=== PATIENT | male | born 1985 | race Caucasian/White ===

== ENCOUNTER 2016-11-13 21:49 | Inpatient (IN) | payer SELFPAY ==
[~2016-11-13] VITALS: Ht 182.9 cm; Wt 76.9 kg
[2016-11-13 21:56] VITALS: BP 144/87; PULSE 124; RESP 18; TEMP 99.5; O2SAT 99
--- NOTE | 2016-11-13 22:29 | PD ---
HPI Chief Complaint: Anxiety Time Seen by Provider: 22:05 Travel History International Travel<30 days: No Contact w/Intl Traveler<30days: No Traveled to known affect area: No History of Present Illness HPI Patient is a 31 year old male who comes in complaining of feeling anxious and worried that he will have a seizure. He says that he drinks a bottle and a half of vodka daily and he wants to quit, but is afraid he will have "DTs." He says that he last drank 4 hours ago. He reports feeling shaky and says he is not thinking clearly. He denies any pain. He says he had a seizure in the past. He denies any abdominal pain, nausea or vomiting. FORMERLY [facility] Past Medical History Medical History: Denies Significant Hx ?: Not Past Surgical History Surgical History: No Previous Surgery Social History Alcohol Use: Yes (daily) Tobacco Use: Yes Allergies-Medications (Allergen,Severity, Reaction): Coded Allergies: No Known Allergies (Unverified , 11/13/16) Review of Systems Except as stated in HPI: all other systems reviewed are Neg General / Constitutional: No: Fever, Chills Eyes: No: Blurred Vision HENT: No: Headaches, Lightheadedness Cardiovascular: No: Chest Pain or Discomfort Respiratory: No: Shortness of Breath Gastrointestinal: No: Nausea, Vomiting, Abdominal Pain Genitourinary: No: Dysuria Musculoskeletal: No: Myalgias, Edema, Pain Skin: No Rash, No Change in Pigmentation Neurologic: No: Weakness, Dizziness Physical Exam Narrative GENERAL: Awake and alert, in no acute distress. No tremor evident. SKIN: Focused skin assessment warm/dry. HEAD: Atraumatic. Normocephalic. EYES: Pupils equal and round. No scleral icterus. Extraocular movements intact. ENT: Mucous membranes pink and moist. No tongue fasciculations. NECK: Trachea midline. No JVD. CARDIOVASCULAR: Tachycardia. No murmur appreciated. RESPIRATORY: No accessory muscle use. Clear to auscultation. Breath sounds equal bilaterally. GASTROINTESTINAL: Abdomen soft, non-tender, nondistended. MUSCULOSKELETAL: No obvious deformities. No clubbing. No cyanosis. No edema. NEUROLOGICAL: Awake and alert. No obvious cranial nerve deficits. Motor grossly within normal limits. Normal speech. PSYCHIATRIC: Appropriate mood and affect; insight and judgment normal. Data Data Last Documented VS Vital Signs Date Time Temp Pulse Resp B/P (MAP) Pulse Ox O2 Delivery O2 Flow Rate FiO2 11/13/16 21:56 99.5 124 18 144/87 (106) 99 Orders Orders Iv Access Insert/Monitor (11/13/16 22:21) Complete Blood Count With Diff (11/13/16 22:21) Comprehensive Metabolic Panel (11/13/16 22:21) Drug Screen, Random Urine (11/13/16 22:21) Alcohol (Ethanol) (11/13/16 22:21) Sodium Chlor 0.9% 1000 Ml Inj (Ns 1000 M (11/13/16 22:30) Lorazepam Inj (Ativan Inj) (11/13/16 22:30) Pantoprazole Inj (Protonix Inj) (11/13/16 23:00) Pantoprazole Inj (Protonix Inj) (11/13/16 23:00) Type And Screen (11/13/16 22:54) Red Blood Cells (Rbc) (11/13/16 22:54) Blood Product Administration (11/13/16 22:54) Sodium Chlor 0.9% 250 Ml Inj (Ns 250 Ml (11/13/16 23:00) Peg (High)/E-Lyte Liq (Colyte Liq) (11/13/16 23:30) Diet Npo Except Meds (11/14/16 Breakfast) Admit Order (Ed Use Only) (11/13/16 ) Labs Laboratory Tests Test 11/13/16 22:30 White Blood Count 4.9 TH/MM3 Red Blood Count 1.88 MIL/MM3 Hemoglobin 6.2 GM/DL Hematocrit 18.9 % Mean Corpuscular Volume 100.5 FL Mean Corpuscular Hemoglobin 32.8 PG Mean Corpuscular Hemoglobin Concent 32.6 % Red Cell Distribution Width 15.1 % Platelet Count 177 TH/MM3 Mean Platelet Volume 7.9 FL Neutrophils (%) (Auto) 54.3 % Lymphocytes (%) (Auto) 38.1 % Monocytes (%) (Auto) 7.0 % Eosinophils (%) (Auto) 0.2 % Basophils (%) (Auto) 0.4 % Neutrophils # (Auto) 2.7 TH/MM3 Lymphocytes # (Auto) 1.9 TH/MM3 Monocytes # (Auto) 0.3 TH/MM3 Eosinophils # (Auto) 0.0 TH/MM3 Basophils # (Auto) 0.0 TH/MM3 CBC Comment DIFF FINAL Differential Comment Blood Urea Nitrogen 9 MG/DL Creatinine 0.73 MG/DL Random Glucose 109 MG/DL Total Protein 6.5 GM/DL Albumin 3.6 GM/DL Calcium Level 8.1 MG/DL Alkaline Phosphatase 99 U/L Aspartate Amino Transf (AST/SGOT) 223 U/L Alanine Aminotransferase (ALT/SGPT) 110 U/L Total Bilirubin 0.3 MG/DL Sodium Level 138 MEQ/L Potassium Level 3.3 MEQ/L Chloride Level 100 MEQ/L Carbon Dioxide Level 23.3 MEQ/L Anion Gap 15 MEQ/L Estimat Glomerular Filtration Rate 126 ML/MIN Ethyl Alcohol Level 262 MG/DL [facility] Medical Decision Making Medical Screen Exam Complete: Yes Emergency Medical Condition: Yes Differential Diagnosis Intoxication versus withdrawal versus dehydration Narrative Course Patient is a 31-year-old male who comes in because he is anxious about possibly withdrawing from alcohol. Exam shows tachycardia, he has bright red blood per rectum and stool that is positive for blood. He denies any vomiting or vomiting of blood. IV established, labs sent. Labs show hemoglobin of 6.2. AST and ALTs are elevated. Alcohol level is 262. Patient given IV fluids. Blood transfusion ordered. Given Protonix and started on a Protonix drip. I spoke with Dr. Dean of GI who suggests GoLYTELY and nothing by mouth after midnight. He'll perform an EGD and colonoscopy tomorrow. Patient will be admitted for further management. HemaPrompt Point of Care Internal Pos. & Neg. Controls: Passed Fecal Specimen Occult Blood: Positive Diagnosis Primary Impression: GI bleed Qualified Codes: K92.2 - Gastrointestinal hemorrhage, unspecified Additional Impressions: Alcohol abuse Anemia Qualified Codes: D64.9 - Anemia, unspecified Admitting Information Admitting Physician Requests: Admit Condition: Stable Josseline Aranda MD Nov 13, 2016 22:29
[2016-11-13] MEDS ORDERED: SODIUM CHLOR 0.9% 1000 ML INJ 1,000 ML IV ONE (22:30)
[2016-11-13] MEDS ORDERED: LORazepam 2 MG/ML VIAL IV PUSH ONE (22:30)
[2016-11-13 22:41] LABS: AUTOMATED NEUTROPHIL # 2.7 TH/MM3 (1.8-7.7); BASOPHIL % 0.4 % (0.0-2.0); EOSINOPHIL % 0.2 % (0.0-4.0); LYMPH % 38.1 % (9.0-44.0); LYMPHOCYTE # 1.9 TH/MM3 (1.0-4.8); MEAN CELL VOLUME 100.5 FL (80.0-100.0); MEAN CORPUSCULAR HEMOGLOBIN 32.8 PG (27.0-34.0); MEAN CORPUSCULAR HGB CONC 32.6 % (32.0-36.0); NEUT % 54.3 % (16.0-70.0); PLATELET COUNT 177 TH/MM3 (150-450); RED BLOOD COUNT 1.88 MIL/MM3 (4.50-5.90); RED CELL DISTRIBUTION WIDTH 15.1 % (11.6-17.2); WHITE BLOOD COUNT 4.9 TH/MM3 (4.0-11.0)
[2016-11-13 22:44] LABS: HEMO FLAGS DIFF FINAL
[2016-11-13 22:46] LABS: HEMATOCRIT 18.9 % (39.0-51.0)
[2016-11-13 22:54] LABS: CHLORIDE 100 MEQ/L (98-107); POTASSIUM 3.3 MEQ/L (3.5-5.1); SODIUM (NA) 138 MEQ/L (136-145)
[2016-11-13 22:56] VITALS: BP 130/73; PULSE 118; RESP 20; O2SAT 100
[2016-11-13 22:58] LABS: ANION GAP 15 MEQ/L (5-15); BICARBONATE 23.3 MEQ/L (21.0-32.0); BLOOD UREA NITROGEN 9 MG/DL (7-18)
[2016-11-13] MEDS ORDERED: SODIUM CHLOR 0.9% 250 ML INJ 250 ML IV ONE (23:00)
[2016-11-13] MEDS ORDERED: PANTOPRAZOLE INJ 80 MG in SODIUM CHLORIDE 0.9% INJ 35 ML IV ONE (23:00)
[2016-11-13 23:01] LABS: ALT (GPT) 110 U/L (12-78); AST (GOT) 223 U/L (15-37); GLOMERULAR FILTRATION RATE 126 ML/MIN (>89)
[2016-11-13 23:02] LABS: TOTAL BILIRUBIN ADULT 0.3 MG/DL (0.2-1.0)
[2016-11-13 23:03] LABS: ALKALINE PHOSPHATASE 99 U/L (45-117)
[2016-11-13 23:13] LABS: ALCOHOL 262 MG/DL (0-5)
[2016-11-13] MEDS ORDERED: PEG (High)/E-LYTE SOLN 4000 ML BTL PO ONE (23:30)
[2016-11-13] MEDS: PANTOPRAZOLE INJ 80 MG in SODIUM CHLORIDE 0.9% INJ 100 ML IV SCH (23:37)
[2016-11-13] MEDS ORDERED: SODIUM CHLORIDE 0.9% FLUSH 10 ML FLUSH IV FLUSH PRN (23:45)
[2016-11-13] MEDS ORDERED: LORazepam 2 MG/ML VIAL IV PUSH PRN ×3 (23:45)
[2016-11-13] MEDS ORDERED: FLUMAZENIL 0.5 MG/5 ML VIAL IV PUSH PRN (23:45)
[2016-11-13] MEDS ORDERED: POTASSIUM CHLORIDE 20 MEQ CONTROLLED RELEASE TAB PO ONE (23:45)
[2016-11-13] MEDS ORDERED: LORazepam 2 MG TAB PO PRN (23:45)
[2016-11-13] MEDS ORDERED: NALOXONE HCL 0.4 MG/ML AMP IV PUSH PRN (23:45)
[2016-11-13 23:59] VITALS: BP 133/82; PULSE 126; RESP 20; O2SAT 100
[2016-11-14] VITALS (36 sets, daily range): BP systolic 100–152; BP diastolic 55–97; PULSE 68–118; RESP 9–54; TEMP 96.5–99.2; O2SAT 92–100
[2016-11-14] MEDS: MORPHINE SULFATE 4 MG/ML INJ IV PUSH PRN ×2 (00:29→03:28)
[2016-11-14] MEDS: ONDANSETRON HCL 4 MG/2 ML VIAL IVP PRN ×4 (00:30→17:44)
[2016-11-14] MEDS: LORazepam 1 MG TAB PO PRN ×2 (01:33→20:12)
[2016-11-14] MEDS: POTASSIUM CHLOR 20 MEQ PREMIX 100 ML IV SCH ×2 (01:33→03:26)
[2016-11-14] MEDS: HYDROmorphone HCL PF 1 MG/ML VIAL IV PUSH PRN ×5 (05:02→22:11)
[2016-11-14] MEDS ORDERED: SODIUM CHLORIDE 0.9% FLUSH 10 ML FLUSH IV FLUSH SCH (09:00)
[2016-11-14] MEDS ORDERED: PEG (High)/E-LYTE SOLN 4000 ML BTL PO ONE (09:00)
[2016-11-14] MEDS: LORazepam 2 MG/ML VIAL IV PUSH PRN ×2 (09:01→12:48)
[2016-11-14] MEDS: PANTOPRAZOLE INJ 80 MG in SODIUM CHLORIDE 0.9% INJ 100 ML IV SCH (09:02)
[2016-11-14] MEDS: SODIUM CHLORIDE 0.9% FLUSH 10 ML FLUSH IV FLUSH SCH ×2 (09:02→20:13)
[2016-11-14 10:12] LABS: AUTOMATED NEUTROPHIL # 4.2 TH/MM3 (1.8-7.7); BASOPHIL % 0.5 % (0.0-2.0); EOSINOPHIL % 0.2 % (0.0-4.0); HEMATOCRIT 23.3 % (39.0-51.0); HEMO FLAGS DIFF FINAL; LYMPH % 17.6 % (9.0-44.0); MEAN CELL VOLUME 95.3 FL (80.0-100.0); MEAN CORPUSCULAR HEMOGLOBIN 30.9 PG (27.0-34.0); MEAN CORPUSCULAR HGB CONC 32.3 % (32.0-36.0); MONO % 8.3 % (0.0-8.0); NEUT % 73.4 % (16.0-70.0); PLATELET COUNT 141 TH/MM3 (150-450); RED BLOOD COUNT 2.44 MIL/MM3 (4.50-5.90); RED CELL DISTRIBUTION WIDTH 16.9 % (11.6-17.2); WHITE BLOOD COUNT 5.7 TH/MM3 (4.0-11.0)
[2016-11-14 10:20] LABS: POTASSIUM 3.5 MEQ/L (3.5-5.1)
[2016-11-14 10:24] LABS: INTERNATIONAL NORMALIZED RATIO 1.1 RATIO; PROTHROMBIN TIME - PATIENT 12.3 SEC (9.8-11.6)
[2016-11-14 10:25] LABS: BICARBONATE 25.8 MEQ/L (21.0-32.0)
[2016-11-14 10:46] LABS: CALCIUM-PROTEIN CORRECTED 8.1 MG/DL (8.5-10.1)
--- NOTE | 2016-11-14 13:08 | HHI.HP ---
[facility] Service [place] [facility] Primary Care Physician No Primary Care Physician Admission Diagnosis GI bleed, anemia, tachycardia Diagnoses: (1) Alcohol withdrawal (2) HTN (hypertension) (3) GI bleed Diagnosis: Principal (4) Alcohol abuse (5) Anemia due to acute blood loss Diagnosis: Principal Travel History International Travel<30 Days: No Contact w/Intl Traveler <30 Da: No Traveled to Known Affected Are: No History of Present Illness This is a pleasant 31-year-old male with past medical history of gastric ulcers and alcoholism with alcohol withdrawal seizure who presented to the ER yesterday with alcohol withdrawal symptoms. Patient states he's been drinking about a bottle and a half wine daily and last drink was the day prior to admission. He started to feel tremulous as he did during his previous bout of alcohol withdrawal several years ago where he suffered a seizure. Because of fear of seizure he came into the emergency department. The patient was found to be anemic with hemoglobin of 6. Guaiac was briskly positive. The patient states that he has been having at times dark tarry stools. He does endorse a history of gastric ulcers but denies history of blood transfusion. The patient also complains of some epigastric and right upper quadrant abdominal pain and that this can get severe at times. No aggravating or alleviating factors. Patient denies vomiting but does endorse nausea. The patient was transfused 2 units of packed red blood cells in the emergency department however hemoglobin has only improved to 7.5 today. Per the nurse he has had several more episodes of melena mixed with bright red blood this morning and he has also been significantly anxious and tremulous requiring Ativan and he remains mildly tachycardic. Review of Systems Constitutional: COMPLAINS OF: Weight loss (states he has lost 5 pounds in the past month), DENIES: Fever, Chills Ears, nose, mouth, throat: DENIES: Throat pain, Hoarseness Respiratory: DENIES: Cough, Shortness of breath Cardiovascular: DENIES: Chest pain, Palpitations, Syncope Gastrointestinal: COMPLAINS OF: Abdominal pain, Black stools, Diarrhea, Nausea , DENIES: Bloody stools, Constipation, Vomiting Genitourinary: DENIES: Urgency, Hematuria, Dysuria Musculoskeletal: DENIES: Back pain, Neck pain Integumentary: DENIES: Rash Hematologic/lymphatic: DENIES: Lymphadenopathy Neurologic: COMPLAINS OF: Headache (occasional headaches), DENIES: Abnormal gait Psychiatric: COMPLAINS OF: Anxiety, DENIES: Confusion, Hallucinations Past Family Social History Past Medical History Hypertension History of gastric ulcer History of alcohol withdrawal seizure Reported Medications Allergies Coded Allergies Type Severity Reaction Last Updated Verified No Known Allergies 11/14/16 No Allergies: Coded Allergies: No Known Allergies (Unverified , 11/14/16) Family History Negative for inflammatory bowel disease Social History He does smoke tobacco, wine use as per history of present illness. Physical Exam Vital Signs Vital Signs Date Time Temp Pulse Resp B/P (MAP) Pulse Ox O2 Delivery O2 Flow Rate FiO2 11/14/16 12:53 96.8 104 15 146/97 (113) 97 11/14/16 09:57 97.4 112 16 129/89 (102) 100 11/14/16 06:52 100 Nasal Cannula 2.00 11/14/16 05:38 96.5 96 20 137/86 100 11/14/16 05:20 97.0 112 20 130/89 100 11/14/16 04:54 97.0 112 20 130/89 100 11/14/16 04:00 96.9 93 20 120/75 (90) 100 11/14/16 02:54 96.9 93 20 120/75 100 11/14/16 02:30 98.7 118 18 134/83 99 11/14/16 01:06 98.7 118 18 134/83 (100) 99 11/14/16 01:00 94 11/14/16 00:50 110 20 145/93 (110) 98 11/14/16 00:12 122 11/14/16 00:00 114 20 152/66 (94) 99 11/13/16 23:59 126 20 133/82 (99) 100 Nasal Cannula 2.00 11/13/16 22:56 118 20 130/73 (92) 100 Nasal Cannula 2.00 11/13/16 21:56 99.5 124 18 144/87 (106) 99 Physical Exam GENERAL: This is a well-nourished, well-developed young adult male patient, in no apparent distress. SKIN: No rashes, ecchymoses or lesions. Cool and dry. HEAD: Atraumatic. Normocephalic. EYES: Pupils equal round and reactive. Extraocular motions intact. No scleral icterus. No injection or drainage. ENT: Throat without erythema, tonsillar hypertrophy or exudate. Uvula midline. Airway patent. NECK: Trachea midline. No JVD or lymphadenopathy. CARDIOVASCULAR: Regular rate and rhythm without murmurs, gallops, or rubs. RESPIRATORY: Clear to auscultation. Breath sounds equal bilaterally. GASTROINTESTINAL: Abdomen soft, mildly tender in the right upper quadrant without rebound tenderness or guarding, nondistended. MUSCULOSKELETAL: Extremities without clubbing, cyanosis, or edema. NEUROLOGICAL: Awake and alert and oriented 3. Mildly anxious with tremors of upper extremities. Motor and sensory grossly within normal limits. Normal speech. Laboratory Laboratory Tests Test 11/13/16 22:30 11/14/16 00:30 11/14/16 09:33 White Blood Count 4.9 5.7 Red Blood Count 1.88 2.44 Hemoglobin 6.2 7.5 Hematocrit 18.9 23.3 Mean Corpuscular Volume 100.5 95.3 Mean Corpuscular Hemoglobin 32.8 30.9 Mean Corpuscular Hemoglobin Concent 32.6 32.3 Red Cell Distribution Width 15.1 16.9 Platelet Count 177 141 Mean Platelet Volume 7.9 8.1 Neutrophils (%) (Auto) 54.3 73.4 Lymphocytes (%) (Auto) 38.1 17.6 Monocytes (%) (Auto) 7.0 8.3 Eosinophils (%) (Auto) 0.2 0.2 Basophils (%) (Auto) 0.4 0.5 Neutrophils # (Auto) 2.7 4.2 Lymphocytes # (Auto) 1.9 1.0 Monocytes # (Auto) 0.3 0.5 Eosinophils # (Auto) 0.0 0.0 Basophils # (Auto) 0.0 0.0 CBC Comment DIFF FINAL DIFF FINAL Differential Comment Blood Urea Nitrogen 9 14 Creatinine 0.73 0.60 Random Glucose 109 161 Total Protein 6.5 5.9 Albumin 3.6 Calcium Level 8.1 7.4 Alkaline Phosphatase 99 Aspartate Amino Transf (AST/SGOT) 223 Alanine Aminotransferase (ALT/SGPT) 110 Total Bilirubin 0.3 Sodium Level 138 139 Potassium Level 3.3 3.5 Chloride Level 100 102 Carbon Dioxide Level 23.3 25.8 Anion Gap 15 11 Estimat Glomerular Filtration Rate 126 158 Ethyl Alcohol Level 262 Urine Opiates Screen NEG Urine Barbiturates Screen NEG Urine Amphetamines Screen NEG Urine Benzodiazepines Screen NEG Urine Cocaine Screen NEG Urine Cannabinoids Screen NEG Prothrombin Time 12.3 Prothromb Time International Ratio 1.1 Protein Corrected Calcium 8.1 Result Diagram: 11/14/1693211/14/16932 Caprini VTE Risk Assessment Caprini VTE Risk Assessment: No/Low Risk (score <= 1) Caprini Risk Assessment Model Point Value = 1 Point Value = 2 Point Value = 3 Point Value = 5 Age 41-60 Minor surgery BMI > 25 kg/m2 Swollen legs Varicose veins or History of unexplained or recurrent spontaneous Oral contraceptives or hormone replacement Sepsis (< 1 month) Serious lung disease, including pneumonia (< 1 month) Abnormal pulmonary function Acute myocardial infarction Congestive heart failure (< 1 month) History of inflammatory bowel disease Medical patient at bed rest Age 61-74 Arthroscopic surgery Major open surgery (> 45 min) Laparoscopic surgery (> 45 min) Malignancy Confined to bed (> 72 hours) Immobilizing plaster cast Central venous access Age >= 75 History of VTE Family history of VTE Factor V Leiden Prothrombin [id number] Lupus anticoagulant Anticardiolipin antibodies Elevated serum homocysteine Heparin-induced thrombocytopenia Other congenital or acquired thrombophilia Stroke (< 1 month) Elective arthroplasty Hip, pelvis, or leg fracture Acute spinal cord injury (< 1 month) Prophylaxis Regimen Total Risk Factor Score Risk Level Prophylaxis Regimen 0-1 Low Early ambulation 2 Moderate Order ONE of the following: *Sequential Compression Device (SCD) *Heparin 5000 units SQ BID 3-4 Higher Order ONE of the following medications: *Heparin 5000 units SQ TID *Enoxaparin/Lovenox 40 mg SQ daily (WT < 150 kg, CrCl > 30 mL/min) *Enoxaparin/Lovenox 30 mg SQ daily (WT < 150 kg, CrCl > 10-29 mL/min) *Enoxaparin/Lovenox 30 mg SQ BID (WT < 150 kg, CrCl > 30 mL/min) AND/OR *Sequential Compression Device (SCD) 5 or more Highest Order ONE of the following medications: *Heparin 5000 units SQ TID (Preferred with Epidurals) *Enoxaparin/Lovenox 40 mg SQ daily (WT < 150 kg, CrCl > 30 mL/min) *Enoxaparin/Lovenox 30 mg SQ daily (WT < 150 kg, CrCl > 10-29 mL/min) *Enoxaparin/Lovenox 30 mg SQ BID (WT < 150 kg, CrCl > 30 mL/min) AND *Sequential Compression Device (SCD) Assessment and Plan Assessment and Plan -Acute GI bleed with acute blood loss anemia, suspect upper GI source such as gastric ulcer - status post 2 units packed red blood cells with improvement of hemoglobin is 7.5 however he continues to have bleeding. Endoscopy and colonoscopy was planned for this morning however patient was unable to complete prep. As he is still having active bleeding of blood transfused additional 2 units of packed red blood cells. Continue him on Protonix drip. I did discuss with the insole reinforcer Dr. Burkett he states he will plan to take the patient for endoscopy this afternoon. We will continue to monitor on telemetry and we will transfer him to the ICU for closer monitoring. -Alcohol withdrawal, with history of alcohol withdrawal seizures. Currently only tremulous on exam no hallucinations. We'll continue him on the alcohol withdrawal pathway. -History of gastric ulcers. Continue PPI. -Hypertension. Patient states he takes Toprol for this. We'll hold until bleeding is resolved. -DVT prophylaxis with SCDs. Problem Qualifiers (1) GI bleed: Qualified Codes: K92.2 - Gastrointestinal hemorrhage, unspecified Lorna Tucker MD Nov 14, 2016 13:07
[2016-11-14] MEDS ORDERED: SOD PHOSPHATE/SOD BIPHOSPHATE (ADULT) ENEMA 133ML RECTAL ONE ×2 (13:30→14:00)
[2016-11-14] MEDS ORDERED: SODIUM CHLOR 0.9% 250 ML INJ 250 ML IV ONE (13:30)
[2016-11-14 13:51] LABS: HEMATOCRIT 22.3 % (39.0-51.0); REVIEW FLAG FINAL
[2016-11-14] MEDS ORDERED: PROPOFOL 200 MG/20 ML AMP IV ONE (16:12)
--- NOTE | 2016-11-14 16:32 | GIPROC ---
[facility] [address] [place] [address], [id number] COLONOSCOPY PROCEDURE REPORT EXAM DATE: 11/14/2016 PATIENT NAME: Rubio Koroma MR #: [id number] BIRTHDATE: 1985 ENDOSCOPIST: Tuan Burkett MD ORDER #: [id number] SPINNING FRAME CHANGER: Anson Morales COMPANION STATUS: inpatient INDICATIONS: The patient is a 31 yr old male here for a colonoscopy due to anemia, non-specific and rectal bleeding PROCEDURE PERFORMED: Colonoscopy, diagnostic MEDICATIONS: None and Per Anesthesia. PREP QUALITY: fair ESTIMATED BLOOD LOSS: None CONSENT: The patient understands the risks and benefits of the procedure and understands that these risks include, but are not limited to: sedation, allergic reaction, infection, perforation and/or bleeding. Alternative means of evaluation and treatment include, among others: physical exam, x-rays, and/or surgical intervention. The patient elects to proceed with this endoscopic procedure. medical equipment was checked for proper function. Hand hygiene and appropriate measures for infection prevention was taken. After the risks, benefits and alternatives of the procedure were thoroughly explained, Informed consent was verified, confirmed and timeout was successfully executed by the treatment team. A digital exam revealed no abnormalities of the rectum The Pentax EC-[id number] endoscope was introduced through the anus and advanced to the cecum, which was identified by both the appendix and ileocecal valve. The instrument was then slowly withdrawn as the colon was fully examined. COLON FINDINGS: Some stool may interfere with the vision of small lesion. The colon mucosa was otherwise normal. Retroflexed views revealed no abnormalities The scope was then completely withdrawn from the patient and the procedure terminated. ADVERSE EVENTS: There were no complications. IMPRESSIONS: 1. Some stool may interfere with the vision of small lesion 2. The colon mucosa was otherwise normal 3. Retroflexed views revealed no abnormalities 4. Revealed no abnormalities of the rectum RECOMMENDATIONS: 1. Yearly hemoccult 2. Start clear liquid Watch for DT RECALL: Colonoscopy as needed Tuan Burkett MD eSigned: Tuan Burkett MD 11/14/2016 4:31 PM cc:
--- NOTE | 2016-11-14 16:36 | GIPROC ---
[facility] [address] [place] [address], [id number] EGD PROCEDURE REPORT EXAM DATE: 11/14/2016 PATIENT NAME: Rubio Koroma MR #: [id number] BIRTHDATE: 1985 ATTENDING: Tuan Burkett MD ORDER #: [id number] BENDING ROLL OPERATOR: Cole Pettit and Anson Morales STATUS: inpatient INDICATIONS: The patient is a 31 yr old male here for an EGD due to anemia and melena PROCEDURE PERFORMED: EGD, diagnostic MEDICATIONS: None and Per Anesthesia. TOPICAL ANESTHETIC: none CONSENT: The patient understands the risks and benefits of the procedure and understands that these risks include, but are not limited to: sedation, allergic reaction, infection, perforation and/or bleeding. Alternative means of evaluation and treatment include, among others: physical exam, x-rays, and/or surgical intervention. The patient elects to proceed with this endoscopic procedure. medical equipment was checked for proper function. Hand hygiene and appropriate measures for infection prevention was taken. After the risks, benefits and alternatives of the procedure were thoroughly explained, Informed consent was verified, confirmed and timeout was successfully executed by the treatment team. The patient was anesthetized with topical anesthesia and the EC-[id number] (Pedi C) and [id number] endoscope was introduced through the mouth and advanced to the second portion of the duodenum. Retroflexed views revealed no abnormalities and Retroflexed views revealed fluidm and some food retained in the stomach The gastroscope was then slowly withdrawn and removed. Retained food in the stomach Mild esophagitis Mild gastritis No varices No sign of active bleeding No old blood. ADVERSE EVENTS: There were no complications. IMPRESSIONS: 1. Retained food in the stomach Mild esophagitis Mild gastritis No varices No sign of active bleeding No old blood 2. Retroflexed views revealed no abnormalities 3. Retroflexed views revealed fluidm and some food retained in the stomach RECOMMENDATIONS: 1. Continue PPI Watch for DT Clear liquid PATIENT CONDITION: stable DISPOSITION: Inpatient REPEAT EXAM: Return as needed for EGD Tuan Burkett MD eSigned: Tuan Burkett MD 11/14/2016 4:35 PM cc: PATIENT NAME: Rubio Koroma MR#: [id number]
[2016-11-14 20:56] LABS: HEMATOCRIT 26.7 % (39.0-51.0); REVIEW FLAG FINAL
[2016-11-15] VITALS (17 sets, daily range): BP systolic 115–154; BP diastolic 72–107; PULSE 65–114; RESP 14–34; TEMP 98.3–99.2; O2SAT 87–98
[2016-11-15] MEDS: PANTOPRAZOLE INJ 80 MG in SODIUM CHLORIDE 0.9% INJ 100 ML IV SCH ×2 (04:16→15:49)
[2016-11-15] MEDS: HYDROmorphone HCL PF 1 MG/ML VIAL IV PUSH PRN ×5 (04:17→20:57)
[2016-11-15 04:33] LABS: HEMATOCRIT 25.9 % (39.0-51.0); MEAN CELL VOLUME 92.2 FL (80.0-100.0); MEAN CORPUSCULAR HEMOGLOBIN 30.9 PG (27.0-34.0); MEAN CORPUSCULAR HGB CONC 33.5 % (32.0-36.0); PLATELET COUNT 145 TH/MM3 (150-450); RED BLOOD COUNT 2.81 MIL/MM3 (4.50-5.90); RED CELL DISTRIBUTION WIDTH 17.3 % (11.6-17.2); REVIEW FLAG FINAL; WHITE BLOOD COUNT 4.8 TH/MM3 (4.0-11.0)
[2016-11-15 04:43] LABS: CHLORIDE 102 MEQ/L (98-107); POTASSIUM 3.6 MEQ/L (3.5-5.1); SODIUM (NA) 138 MEQ/L (136-145)
[2016-11-15 04:49] LABS: ANION GAP 9 MEQ/L (5-15); BICARBONATE 27.2 MEQ/L (21.0-32.0); BLOOD UREA NITROGEN 7 MG/DL (7-18)
[2016-11-15 04:52] LABS: ALT (GPT) 73 U/L (12-78); AST (GOT) 98 U/L (15-37); GLOMERULAR FILTRATION RATE 175 ML/MIN (>89)
[2016-11-15 04:53] LABS: TOTAL BILIRUBIN ADULT 1.1 MG/DL (0.2-1.0)
[2016-11-15 04:55] LABS: ALKALINE PHOSPHATASE 80 U/L (45-117)
[2016-11-15] MEDS: SODIUM CHLORIDE 0.9% FLUSH 10 ML FLUSH IV FLUSH SCH ×2 (08:18→20:57)
--- NOTE | 2016-11-15 09:38 | HHI.PR ---
Subjective Remarks Patient has had no further GI bleeding or melena and has not had a bowel movement since before the endoscopy. Patient states he is anxious but states the tremors are better. He states he has generalized weakness. Objective Vitals Vital Signs Date Time Temp Pulse Resp B/P (MAP) Pulse Ox O2 Delivery O2 Flow Rate FiO2 11/15/16 08:00 97 2.00 11/15/16 08:00 98.3 82 18 129/87 (101) 97 11/15/16 06:00 82 23 131/89 (103) 98 11/15/16 05:00 74 14 132/89 (103) 87 11/15/16 04:00 98.6 82 19 115/72 (86) 94 11/15/16 03:00 74 34 125/79 (94) 93 11/15/16 02:00 82 16 131/81 (98) 96 11/15/16 01:00 92 19 148/93 (111) 95 11/15/16 00:00 98.7 80 15 127/87 (100) 92 11/14/16 20:00 98.7 94 16 137/94 (108) 96 11/14/16 19:30 98.7 96 18 111/74 97 11/14/16 19:00 97 Nasal Cannula 2.00 11/14/16 17:07 70 16 127/90 (102) 11/14/16 17:04 70 16 131/92 (105) 94 11/14/16 17:01 70 33 123/82 (96) 95 11/14/16 17:00 72 21 94 11/14/16 16:58 84 33 139/81 (100) 93 11/14/16 16:55 76 13 135/88 (104) 92 11/14/16 16:52 78 15 132/97 (109) 92 11/14/16 16:49 100 20 144/88 (106) 95 11/14/16 16:46 92 27 118/83 (95) 11/14/16 16:43 68 14 104/71 (82) 11/14/16 16:40 72 11 100/58 (72) 99 11/14/16 16:37 72 14 101/57 (72) 11/14/16 16:34 76 13 101/55 (70) 11/14/16 16:31 80 24 105/55 (72) 11/14/16 16:28 82 14 104/58 (73) 100 11/14/16 16:25 82 9 103/59 (74) 100 11/14/16 16:22 76 29 110/58 (75) 100 11/14/16 16:16 82 54 112/78 (89) 99 11/14/16 16:13 80 48 125/76 (92) 99 11/14/16 16:00 92 31 95 11/14/16 15:33 99.2 82 28 138/92 95 11/14/16 15:23 98.7 94 34 133/92 98 11/14/16 13:39 18 11/14/16 12:53 96.8 104 15 146/97 (113) 97 11/14/16 09:57 97.4 112 16 129/89 (102) 100 I/O 11/14/16 11/14/16 11/14/16 11/15/16 11/15/16 11/15/16 07:00 15:00 23:00 07:00 15:00 23:00 Intake Total 2199 ml 742 ml 3530 ml Output Total 250 ml 900 ml 1350 ml Balance 1949 ml 742 ml 2630 ml -1350 ml Intake Oral 500 ml 3000 ml IV Total 1299 ml 20 ml 200 ml Packed Cells 400 ml 400 ml 250 ml Blood Product IV Normal Saline Flush 322 ml 80 ml Output Urine Total 250 ml 900 ml 1350 ml # Bowel Movements 3 2 Result Diagram: 11/15/1641611/15/16416 Objective Remarks GENERAL: Well-nourished, well-developed pleasant young adult male patient. SKIN: Warm and dry. HEAD: Normocephalic. EYES: No scleral icterus. No injection or drainage. NECK: Supple, trachea midline. No JVD or lymphadenopathy. CARDIOVASCULAR: Regular rate and rhythm without murmurs, gallops, or rubs. RESPIRATORY: Breath sounds equal bilaterally. No accessory muscle use. GASTROINTESTINAL: Abdomen soft, non-tender, nondistended. EXTREMITIES: No cyanosis, or edema. NEUROLOGICAL: Awake, alert, and oriented x 3. Non-focal. Mild tremors of upper extremities. A/P Problem List: (1) Alcohol withdrawal ICD Code: F10.239 - Alcohol dependence with withdrawal, unspecified (2) HTN (hypertension) ICD Code: I10 - Essential (primary) hypertension (3) GI bleed ICD Code: K92.2 - Gastrointestinal hemorrhage, unspecified Status: Acute (4) Alcohol abuse ICD Code: F10.10 - Alcohol abuse, uncomplicated Status: Acute (5) Anemia due to acute blood loss ICD Code: D62 - Acute posthemorrhagic anemia Assessment and Plan -Acute GI bleed with acute blood loss anemia, status post transfusion of 4 units packed red blood cells, he underwent EGD yesterday showing gastritis but no fresh bleeding. He has not had any further bleeding since. Continue Protonix IV drip. Continue clear liquid diet. Transfer to floor with telemetry. GI following. -Alcohol withdrawal, with history of alcohol withdrawal seizures. Currently only tremulous on exam no hallucinations. We'll continue him on the alcohol withdrawal pathway. -Gastritis, History of gastric ulcers. Continue PPI. -Hypertension. Patient states he takes Toprol for this. We'll hold until bleeding is resolved. -Mild thrombocytopenia likely secondary to bone marrow depression from the alcoholism. -DVT prophylaxis with SCDs. Problem Qualifiers (1) GI bleed: Qualified Codes: K92.2 - Gastrointestinal hemorrhage, unspecified Lorna Tucker MD Nov 15, 2016 09:38
[2016-11-15] MEDS ORDERED: INFLUENZA VIRUS VACCINE (QUADRIVALENT) 0.5 ML SYR IM ONE (10:00)
[2016-11-15] MEDS: SODIUM CHLORIDE 0.9% FLUSH 10 ML FLUSH IV FLUSH PRN ×2 (12:38→16:53)
[2016-11-15 12:57] LABS: REVIEW FLAG FINAL
[2016-11-15 18:54] LABS: HEMATOCRIT 28.3 % (39.0-51.0); REVIEW FLAG FINAL
--- NOTE | 2016-11-15 22:11 | HHI.GIFU ---
Subjective Remarks patient laying on brd comfortable, wants to go home, tolerated liquid diet Objective Vitals I&O Vital Signs Date Time Temp Pulse Resp B/P (MAP) Pulse Ox O2 Delivery O2 Flow Rate FiO2 11/15/16 19:00 97 1.00 11/15/16 17:22 18 11/15/16 16:00 99.2 112 18 154/90 (111) 97 11/15/16 14:11 65 16 120/85 (97) 94 11/15/16 13:26 98.6 67 14 145/89 (107) 11/15/16 12:00 98.9 98 20 145/89 (107) 97 11/15/16 11:04 98.6 71 24 126/85 (99) 97 11/15/16 10:00 98.6 80 33 127/85 (99) 11/15/16 09:00 98.3 77 14 133/85 (101) 97 11/15/16 08:00 97 2.00 11/15/16 08:00 98.3 82 18 129/87 (101) 97 11/15/16 06:00 82 23 131/89 (103) 98 11/15/16 05:00 74 14 132/89 (103) 87 11/15/16 04:00 98.6 82 19 115/72 (86) 94 11/15/16 03:00 74 34 125/79 (94) 93 11/15/16 02:00 82 16 131/81 (98) 96 11/15/16 01:00 92 19 148/93 (111) 95 11/15/16 00:00 98.7 80 15 127/87 (100) 92 I/O 11/14/16 11/14/16 11/14/16 11/15/16 11/15/16 11/15/16 06:59 14:59 22:59 06:59 14:59 22:59 Intake Total 2199 ml 742 ml 3530 ml 500 ml Output Total 250 ml 900 ml 1350 ml 1550 ml Balance 1949 ml 742 ml 2630 ml -1350 ml -1050 ml Intake Oral 500 ml 3000 ml 500 ml IV Total 1299 ml 20 ml 200 ml Packed Cells 400 ml 400 ml 250 ml Blood Product IV Normal Saline Flush 322 ml 80 ml Output Urine Total 250 ml 900 ml 1350 ml 1550 ml # Voids 3 # Bowel Movements 3 2 Laboratory Laboratory Tests Test 11/15/16 04:17 11/15/16 12:49 11/15/16 18:35 White Blood Count 4.8 Red Blood Count 2.81 Hemoglobin 8.7 10.0 9.5 Hematocrit 25.9 30.0 28.3 Mean Corpuscular Volume 92.2 Mean Corpuscular Hemoglobin 30.9 Mean Corpuscular Hemoglobin Concent 33.5 Red Cell Distribution Width 17.3 Platelet Count 145 Mean Platelet Volume 7.8 Blood Urea Nitrogen 7 Creatinine 0.55 Random Glucose 97 Total Protein 5.9 Albumin 3.3 Calcium Level 8.2 Alkaline Phosphatase 80 Aspartate Amino Transf (AST/SGOT) 98 Alanine Aminotransferase (ALT/SGPT) 73 Total Bilirubin 1.1 Sodium Level 138 Potassium Level 3.6 Chloride Level 102 Carbon Dioxide Level 27.2 Anion Gap 9 Estimat Glomerular Filtration Rate 175 Physical Exam HEENT: Pupils round and reactive to light; normocephalic; atraumatic; no jaundice. Throat is clear. NECK: Neck is supple, no JVD, no lymphadenopathy. CHEST: Chest is clear to auscultation and percussion. CARDIAC: Regular rate and rhythm with no murmur gallop or rubs. ABDOMEN: Soft, nondistended, nontender; no hepatosplenomegaly; bowel sounds are present in all four quadrants. EXTREMITIES: No clubbing, cyanosis, or edema. SKIN: Normal; no rash; no jaundice. VP GLOBAL: No focal deficits; alert and oriented times three. Assessment and Plan Plan possible GIB with anemia, questionable etiology no clear reason on EGD ( esophagitis and mild gastritis but no sign of bleed, colonoscopy was negative) could be related to suppression because of ETOH today is doing well, HGB is better LFTs most likely ETOH related, improving advance diet as tolerated no ETOH Tuan Burkett MD Nov 15, 2016 22:11
[2016-11-16] VITALS (7 sets, daily range): BP systolic 130–149; BP diastolic 78–101; PULSE 82–122; RESP 16–37; TEMP 99.3–99.7; O2SAT 94–100
[2016-11-16] MEDS: PANTOPRAZOLE INJ 80 MG in SODIUM CHLORIDE 0.9% INJ 100 ML IV SCH (00:59)
[2016-11-16] MEDS: HYDROmorphone HCL PF 1 MG/ML VIAL IV PUSH PRN ×3 (01:00→09:28)
[2016-11-16 02:06] LABS: HEMATOCRIT 27.7 % (39.0-51.0)
[2016-11-16 02:16] LABS: REVIEW FLAG FINAL
[2016-11-16] MEDS: ONDANSETRON HCL 4 MG/2 ML VIAL IVP PRN ×2 (05:21→11:57)
[2016-11-16 06:33] LABS: HEMATOCRIT 27.8 % (39.0-51.0); REVIEW FLAG FINAL
[2016-11-16] MEDS: SODIUM CHLORIDE 0.9% FLUSH 10 ML FLUSH IV FLUSH SCH ×2 (09:00→09:28)
[2016-11-16 09:04] LABS: CHLORIDE 99 MEQ/L (98-107); SODIUM (NA) 136 MEQ/L (136-145)
[2016-11-16 09:08] LABS: ANION GAP 12 MEQ/L (5-15); BICARBONATE 24.8 MEQ/L (21.0-32.0)
[2016-11-16 09:09] LABS: BLOOD UREA NITROGEN 4 MG/DL (7-18)
[2016-11-16 09:11] LABS: ALT (GPT) 65 U/L (12-78); AST (GOT) 68 U/L (15-37); GLOMERULAR FILTRATION RATE 168 ML/MIN (>89)
[2016-11-16 09:13] LABS: TOTAL BILIRUBIN ADULT 0.7 MG/DL (0.2-1.0)
[2016-11-16 09:14] LABS: ALKALINE PHOSPHATASE 83 U/L (45-117)
[2016-11-16 09:15] LABS: CREATINE KINASE 34 U/L (39-308)
[2016-11-16] MEDS ORDERED: POTASSIUM CHLORIDE 20 MEQ CONTROLLED RELEASE TAB PO ONE (11:00)
[2016-11-16 12:58] LABS: HEMATOCRIT 30.1 % (39.0-51.0)
[2016-11-16] MEDS ORDERED: PANTOPRAZOLE SOD 40 MG DELAYED RELEASE TAB PO SCH (13:00)
[2016-11-16 13:05] LABS: REVIEW FLAG FINAL
[2016-11-16] MEDS ORDERED: FERR325T8 PO (13:05)
[2016-11-16] MEDS ORDERED: PRIL20TA2 PO (13:05)
--- NOTE | 2016-11-16 13:06 | HHI.DS ---
Discharge Summary Admission Date Nov 13, 2016 at 23:29 Discharge Date: Nov 16, 2016 Admitting Diagnosis GI bleed, anemia, tachycardia (1) Alcohol withdrawal ICD Code: F10.239 - Alcohol dependence with withdrawal, unspecified (2) HTN (hypertension) ICD Code: I10 - Essential (primary) hypertension (3) GI bleed ICD Code: K92.2 - Gastrointestinal hemorrhage, unspecified Diagnosis: Principal Status: Acute (4) Alcohol abuse ICD Code: F10.10 - Alcohol abuse, uncomplicated Status: Acute (5) Anemia due to acute blood loss ICD Code: D62 - Acute posthemorrhagic anemia Diagnosis: Principal (6) Gastritis ICD Code: K29.70 - Gastritis, unspecified, without bleeding Procedures EGD, colonoscopy Brief History - From Admission This is a pleasant 31-year-old male with past medical history of gastric ulcers and alcoholism with alcohol withdrawal seizure who presented to the ER yesterday with alcohol withdrawal symptoms. Patient states he's been drinking about a bottle and a half wine daily and last drink was the day prior to admission. He started to feel tremulous as he did during his previous bout of alcohol withdrawal several years ago where he suffered a seizure. Because of fear of seizure he came into the emergency department. The patient was found to be anemic with hemoglobin of 6. Guaiac was briskly positive. The patient states that he has been having at times dark tarry stools. He does endorse a history of gastric ulcers but denies history of blood transfusion. The patient also complains of some epigastric and right upper quadrant abdominal pain and that this can get severe at times. No aggravating or alleviating factors. Patient denies vomiting but does endorse nausea. The patient was transfused 2 units of packed red blood cells in the emergency department however hemoglobin has only improved to 7.5 today. Per the nurse he has had several more episodes of melena mixed with bright red blood this morning and he has also been significantly anxious and tremulous requiring Ativan and he remains mildly tachycardic. CBC/BMP: 11/16/16 0558 11/16/16 0558 Significant Findings Laboratory Tests Test 11/13/16 22:30 11/14/16 00:30 11/14/16 09:33 11/14/16 13:39 Red Blood Count 1.88 MIL/MM3 (4.50-5.90) 2.44 MIL/MM3 (4.50-5.90) Hemoglobin 6.2 GM/DL (13.0-17.0) 7.5 GM/DL (13.0-17.0) 7.4 GM/DL (13.0-17.0) Hematocrit 18.9 % (39.0-51.0) 23.3 % (39.0-51.0) 22.3 % (39.0-51.0) Mean Corpuscular Volume 100.5 FL (80.0-100.0) Random Glucose 109 MG/DL (74-106) 161 MG/DL (74-106) Calcium Level 8.1 MG/DL (8.5-10.1) 7.4 MG/DL (8.5-10.1) Aspartate Amino Transf (AST/SGOT) 223 U/L (15-37) Alanine Aminotransferase (ALT/SGPT) 110 U/L (12-78) Potassium Level 3.3 MEQ/L (3.5-5.1) Ethyl Alcohol Level 262 MG/DL (0-5) Platelet Count 141 TH/MM3 (150-450) Neutrophils (%) (Auto) 73.4 % (16.0-70.0) Monocytes (%) (Auto) 8.3 % (0.0-8.0) Prothrombin Time 12.3 SEC (9.8-11.6) Total Protein 5.9 GM/DL (6.4-8.2) Protein Corrected Calcium 8.1 MG/DL (8.5-10.1) Test 11/14/16 20:50 11/15/16 04:17 11/15/16 12:49 11/15/16 18:35 Hemoglobin 8.8 GM/DL (13.0-17.0) 8.7 GM/DL (13.0-17.0) 10.0 GM/DL (13.0-17.0) 9.5 GM/DL (13.0-17.0) Hematocrit 26.7 % (39.0-51.0) 25.9 % (39.0-51.0) 30.0 % (39.0-51.0) 28.3 % (39.0-51.0) Red Blood Count 2.81 MIL/MM3 (4.50-5.90) Red Cell Distribution Width 17.3 % (11.6-17.2) Platelet Count 145 TH/MM3 (150-450) Creatinine 0.55 MG/DL (0.60-1.30) Total Protein 5.9 GM/DL (6.4-8.2) Albumin 3.3 GM/DL (3.4-5.0) Calcium Level 8.2 MG/DL (8.5-10.1) Aspartate Amino Transf (AST/SGOT) 98 U/L (15-37) Total Bilirubin 1.1 MG/DL (0.2-1.0) Test 11/16/16 01:50 11/16/16 05:58 11/16/16 12:41 Hemoglobin 8.9 GM/DL (13.0-17.0) 9.2 GM/DL (13.0-17.0) 9.8 GM/DL (13.0-17.0) Hematocrit 27.7 % (39.0-51.0) 27.8 % (39.0-51.0) 30.1 % (39.0-51.0) Blood Urea Nitrogen 4 MG/DL (7-18) Creatinine 0.57 MG/DL (0.60-1.30) Random Glucose 139 MG/DL (74-106) Total Protein 6.1 GM/DL (6.4-8.2) Albumin 3.3 GM/DL (3.4-5.0) Calcium Level 8.4 MG/DL (8.5-10.1) Aspartate Amino Transf (AST/SGOT) 68 U/L (15-37) Potassium Level 3.0 MEQ/L (3.5-5.1) Total Creatine Kinase 34 U/L (39-308) Troponin I LESS THAN 0.02 NG/ML PE at Discharge GENERAL: Well-nourished, well-developed pleasant young adult male patient. SKIN: Warm and dry. HEAD: Normocephalic. EYES: No scleral icterus. No injection or drainage. NECK: Supple, trachea midline. No JVD or lymphadenopathy. CARDIOVASCULAR: Regular rate and rhythm without murmurs, gallops, or rubs. RESPIRATORY: Breath sounds equal bilaterally. No accessory muscle use. GASTROINTESTINAL: Abdomen soft, non-tender, nondistended. EXTREMITIES: No cyanosis, or edema. NEUROLOGICAL: Awake, alert, and oriented x 3. Non-focal. Mild tremors of upper extremities. Hospital Course The patient was admitted to the hospital, he was transfused 4 units of packed red blood cells with improvement of hemoglobin to 9. GI was consulted and he underwent EGD and colonoscopy showing gastritis, no active bleeding. He has not had any further GI bleeding. Hemoglobin stable at 9. Alcohol withdrawal score (CIWA) is only 2 however he remains moderately anxious. He has epigastric pain. Lipase is negative. He is tolerating regular diet. The patient was counseled that the pain is due to gastritis and he needs to avoid alcohol, continue PPI, avoid spicy foods and caffeine. The patient voices understanding. His potassium is low this morning and will be repleted. Patient will be discharged home today. He is advised return to the ER if he develops any melena or GI bleeding. Pt Condition on Discharge: Stable Discharge Disposition: Discharge Home Discharge Time: <= 30 minutes Discharge Instructions DIET: Follow Instructions for: As Tolerated, No Restrictions Additional Diet Instructions: no alcohol Activities you can perform: Regular-No Restrictions New Medications: Ferrous Sulfate (Ferrous Sulfate) 325 Mg (65 Mg Iron) Tablet 325 MG PO BIDPC for Nutritional Supplement, #60 TAB 0 Refills Omeprazole Magnesium (Prilosec) 20 Mg Tab 20 MG PO DAILY for gastritis, #30 TAB Lorna Tucker MD Nov 16, 2016 13:06
--- NOTE | 2016-11-16 13:26 | MB ---
cc: JULEE BUTLER M.D. DATE OF CONSULTATION: 11/16/2016. REASON FOR CONSULTATION: GI bleed. REFERRING PHYSICIAN: Dr. Tucker. HISTORY OF PRESENT ILLNESS: Thank you for the consultation. This is a 31-year-old male. The patient came with questionable GI bleed. The patient has dark stool and questionable rectal bleeding with significant anemia. Hemoglobin was low. Apparently the patient drinks alcohol on a daily basis in a large amount and he had some abdominal discomfort and he was supposed to get a colonoscopy and endoscopy today but he was not prepped. He did not finish his prep. Apparently the patient started having some more blood in the stool and before that he had peptic ulcer disease with his history of gastric ulcer and alcoholism. He was transferred to the ICU and I was asked to see him on an urgent basis. The patient is alert, oriented and in no acute distress but he is a little bit agitated and he already received two units of blood. REVIEW OF SYSTEMS: All 12-point negative except for the history of present illness. FAMILY HISTORY: Negative for inflammatory bowel disease or colon cancer. ALLERGIES: NO KNOWN DRUG ALLERGIES. SOCIAL HISTORY: Positive for tobacco and alcohol. PHYSICAL EXAMINATION: GENERAL: Alert, oriented, in no acute distress. HEAD, EYES, EARS, NOSE, THROAT: Pupils are round and reactive to light. NECK: The neck is supple. CHEST: Clear to auscultation and percussion. CARDIAC: Tachycardia. Now regular rate and rhythm. No murmur or gallop. ABDOMEN: Abdomen is soft. Mild diffuse tenderness mostly in the right upper quadrant and mid epigastric area. Positive bowel sounds. EXTREMITIES: No edema, clubbing or cyanosis. NEUROLOGIC: Neurologically alert and oriented. PSYCHIATRIC: The patient is anxious. Psychologically appropriate. LABORATORY DATA: White count 5.7, hemoglobin 7.5, platelets 141,00. Total bilirubin 0.3, potassium 3.3, AST 223, ALT 110, albumin 3.6, BUN 90 and creatinine 0.73. Alcohol level was 262. ASSESSMENT AND PLAN: A 31-year-old male with anemia, questionable GI bleed, could be peptic ulcer disease, could be bleeding from colon. 1. With the anemia, I plan on doing the endoscopy and a colonoscopy on an urgent basis. The patient was given the prep and will plan on doing it today. 2. We will check CBC and give him packed red blood cells as needed. 3. Watch for DT's as the patient has a significant amount of alcohol abuse and might get into that. 4. The patient will need follow up on liver function tests to make sure that he is improving. MD CAROLE Kellogg/LYRIC /10:02 PM /1:05 PM
--- NOTE | 2016-11-16 17:43 | EKG ---
Date Performed: 11/16/2016 Time Performed: 08:21:30 PTAGE: 31 years EKG: Sinus rhythm MILD INTRAVENTRICULAR CONDUCTION DISTURBANCE OTHERWISE WITHIN NORMAL LIMITS. BORDERLINE ECG NO PREVIOUS TRACING DOCTOR: Tadeo Winter Interpretating Date/Time 11/16/2016 17:42:24
== END 2016-11-16 13:35 | disposition home or self-care (01) | DRG 378 ==
LOC: PHED 21:49 → PHEDA 23:29 → PH3A 11-14 01:06 → PHICU 11-14 13:20
PROVIDERS: ADMIT Family Medicine; ATTEND Family Medicine
PROC: 0DJD8ZZ Inspection of Lower Intestinal Tract, Via Natural or Artificial Opening Endoscopic (ICD-10-PCS; 2016-11-14)
PROC: 30233N1 Transfusion of Nonautologous Red Blood Cells into Peripheral Vein, Percutaneous Approach (ICD-10-PCS; principal; 2016-11-14 16:05)
PROC: 0DJ08ZZ Inspection of Upper Intestinal Tract, Via Natural or Artificial Opening Endoscopic (ICD-10-PCS; 2016-11-14 16:05)
DX: K92.1 Melena (principal); D62 Acute posthemorrhagic anemia; D69.59 Other secondary thrombocytopenia; F10.239 Alcohol dependence with withdrawal, unspecified; I10 Essential (primary) hypertension; F17.210 Nicotine dependence, cigarettes, uncomplicated; K29.70 Gastritis, unspecified, without bleeding; F10.229 Alcohol dependence with intoxication, unspecified; Y90.8 Blood alcohol level of 240 mg/100 ml or more
CPT/HCPCS: 36430; 80048; 80053; 80307; 82550; 83690; 84155; 84484; 85014; 85018; 85025; 85027; 85610; 86850; 86900; 86901; 86920; 90686; 93005; 99285; C9113; J1170; J2060; J2270; J2405; J3480; J7030; J7050; P9016; Q2038